=== PATIENT | male | born 1975 | race Caucasian/White ===

== ENCOUNTER 2018-07-02 16:14 | Emergency (ER) | payer SELFPAY ==
[~2018-07-02] VITALS: Ht 172.7 cm; Wt 101.0 kg
[2018-07-02 16:32] VITALS: BP 143/90
== END 2018-07-02 20:21 | disposition left against medical advice (07) ==
LOC: ER 16:14
DX: Z53.21 Procedure and treatment not carried out due to patient leaving prior to being seen by health care provider (principal)